=== PATIENT | male | born 1980 | race Caucasian/White ===

== ENCOUNTER 2019-07-28 16:54 | Emergency (ER) | payer OTHER ==
[~2019-07-28] VITALS: Ht 188 cm; Wt 120.2 kg
--- NOTE | 2019-07-28 17:01 | NUR ---
christy at bedside for x-ray
--- NOTE | 2019-07-28 17:02 | NUR ---
, c/o left middle finger pain 4/10 pain scale. On room air, breathing evenly and unlabored. kept comfortable, will continue to monitor accordingly.
[2019-07-28] MEDS ORDERED: LIDOCAINE 1% INJ 50 ML MDV IJ ONE (17:09)
[2019-07-28] MEDS ORDERED: ONDANSETRON 4 MG TAB.RAPDIS ONE (17:19)
[2019-07-28] MEDS ORDERED: HYDROCODONE/APAP 10/325MG 1 EA TABLET ONE (17:19)
[2019-07-28] MEDS ORDERED: ONDANSETRON 4 MG TAB.RAPDIS SL ONE (17:30)
[2019-07-28] MEDS ORDERED: HYDROCODONE/APAP 10/325MG 1 EA TABLET PO ONE (17:30)
[2019-07-28 18:11] VITALS: BP 135/81
--- NOTE | 2019-07-28 18:12 | NUR ---
Patient discharged to home in stable condition. Written and verbal after care instructions given. Patient verbalizes understanding of instruction.
== END 2019-07-28 18:12 | disposition home or self-care (01) ==
LOC: ER 16:57
DX: S63.283A Dislocation of proximal interphalangeal joint of left middle finger, initial encounter (principal); X58.XXXA Exposure to other specified factors, initial encounter; Y93.9 Activity, unspecified; Y92.89 Other specified places as the place of occurrence of the external cause; Y99.8 Other external cause status
CPT/HCPCS: 26770; 73140 ×2; 99284; J3490; Q0162